=== PATIENT | male | born 1970 | race Caucasian/White ===

== ENCOUNTER 2023-03-06 09:24 | Day surgery (SDC) | payer MEDICARE ==
[2023-03-06] MEDS ORDERED: Sodium Chloride 0.9(Preservative Free) 10 ML IJ ONE (09:25)
[2023-03-06] MEDS ORDERED: LIDOCAINE HCL 1% 50 MG/5 ML VL PF IJ ONE (09:25)
[2023-03-06] MEDS ORDERED: Depo-Medrol 40 MG/ML IM ONE (09:25)
[2023-03-06] MEDS ORDERED: DIPRIVAN 200 MG/20 ML IV ONE (11:09)
--- NOTE | 2023-03-06 12:03 | XRAY ---
Indication: Lumbar JOSSELIN. Intraoperative fluoroscopy provided for 25 seconds. 2 digital spot image submitted for interpretation demonstrates needle tip projecting posterior to lumbosacral junction interspace. Small amount of contrast injected for needle tip placement. Correlate with intraoperative findings/report.
--- NOTE | 2023-03-06 12:08 | XRAY ---
25 seconds of fluoroscopy was used in surgery for a lumbar JOSSELIN.
[2023-03-06] MEDS ORDERED: Lactated Ringers 1,000 ML IV ONE (12:45)
== END 2023-03-06 11:39 | disposition home or self-care (01) ==
LOC: SDC-PAIN 09:24
PROVIDERS: ATTEND Psychiatry & Neurology Pain Medicine
DX: M54.16 Radiculopathy, lumbar region (principal); E11.9 Type 2 diabetes mellitus without complications; Z79.899 Other long term (current) drug therapy
CPT/HCPCS: 62323; 72100; 77003; 82947; J1030; J2001; J2704; Q9966

== ENCOUNTER 2023-07-17 07:44 | Day surgery (SDC) | payer MEDICARE ==
[2023-07-17] MEDS ORDERED: Depo-Medrol 40 MG/ML IM ONE (07:45)
[2023-07-17] MEDS ORDERED: LIDOCAINE HCL 2% 100 MG/5 ML IJ ONE (07:45)
[2023-07-17] MEDS ORDERED: Versed 2 MG/2 ML Injection ONE (09:23)
[2023-07-17] MEDS ORDERED: DIPRIVAN 200 MG/20 ML IV ONE (09:23)
--- NOTE | 2023-07-17 10:02 | XRAY ---
Indication: Bilateral L4-S1 MBB. Intraoperative fluoroscopy provided for 14 seconds. Single digital spot image submitted for interpretation demonstrates posterior needle tips projecting over the expected left and right L4-S1 nerve roots. Correlate with intraoperative findings/report.
[2023-07-17] MEDS ORDERED: Lactated Ringers 1,000 ML IV ONE (10:03)
--- NOTE | 2023-07-17 10:04 | XRAY ---
14 seconds of fluoroscopy was used in surgery for a bilateral L4-S1 MBB.
== END 2023-07-17 09:50 | disposition home or self-care (01) ==
LOC: SDC-PAIN 07:44
PROVIDERS: ATTEND Psychiatry & Neurology Pain Medicine
DX: M47.816 Spondylosis without myelopathy or radiculopathy, lumbar region (principal); E11.9 Type 2 diabetes mellitus without complications; Z79.899 Other long term (current) drug therapy
CPT/HCPCS: 64493; 64494; 72020; 77002; 82947; J1030; J2250; J2704

== ENCOUNTER 2024-01-01 09:17 | Day surgery (SDC) | payer MEDICARE ==
[2024-01-01] MEDS ORDERED: Depo-Medrol 40 MG/ML IM ONE (09:18)
[2024-01-01] MEDS ORDERED: BUPIVACAINE 0.5% VIAL IJ ONE (09:18)
[2024-01-01] MEDS ORDERED: DIPRIVAN 200 MG/20 ML IV ONE (10:07)
[2024-01-01] MEDS ORDERED: Lactated Ringers 1,000 ML IV ONE (11:16)
--- NOTE | 2024-01-01 11:56 | XRAY ---
Indication: Bilateral L4-S1 MBB. Intraoperative fluoroscopy provided for 12 seconds. Single digital spot image submitted for interpretation demonstrates posterior needle tips projecting over the expected left and right L4-S1 nerve roots. Correlate with intraoperative findings/report.
--- NOTE | 2024-01-01 12:07 | XRAY ---
12 seconds of fluoroscopy was used in surgery for a bilateral L4-S1 MBB.
== END 2024-01-01 10:35 | disposition home or self-care (01) ==
LOC: SDC-PAIN 09:17
PROVIDERS: ATTEND Psychiatry & Neurology Pain Medicine
DX: M47.816 Spondylosis without myelopathy or radiculopathy, lumbar region (principal); E11.9 Type 2 diabetes mellitus without complications
CPT/HCPCS: 64493; 64494; 72020; 77002; 82947; J1010; J2704

== ENCOUNTER 2024-02-05 10:06 | Day surgery (SDC) | payer MEDICARE ==
[2024-02-05] MEDS ORDERED: Sodium Chloride 0.9(Preservative Free) 10 ML IJ ONE (10:07)
[2024-02-05] MEDS ORDERED: Decadron 4 MG INJ IV ONE (10:07)
[2024-02-05] MEDS ORDERED: DIPRIVAN 200 MG/20 ML IV ONE (12:51)
[2024-02-05] MEDS ORDERED: Lactated Ringers 1,000 ML IV ONE (14:04)
--- NOTE | 2024-02-05 15:07 | XRAY ---
Indication: Right L4-S1 transforaminal JOSSELIN. Intraoperative fluoroscopy provided for 37 seconds. 5 digital spot image submitted for interpretation demonstrates posterior needle tips projecting over the expected right L4 and L5 nerve roots. Small amount of contrast injected for needle tip placement. Correlate with intraoperative findings/report.
--- NOTE | 2024-02-05 16:51 | XRAY ---
37 seconds of fluoroscopy was used in surgery for a right L4-S1 transforaminal JOSSELIN.
== END 2024-02-05 13:18 | disposition home or self-care (01) ==
LOC: SDC-PAIN 10:06
PROVIDERS: ATTEND Psychiatry & Neurology Pain Medicine
DX: M54.16 Radiculopathy, lumbar region (principal); E11.9 Type 2 diabetes mellitus without complications
CPT/HCPCS: 64483; 64484; 72100; 77003; 82947; J1100; J2704; Q9966

== ENCOUNTER 2024-05-20 15:56 | Day surgery (SDC) | payer MEDICARE ==
[2024-05-20] MEDS ORDERED: LIDOCAINE HCL 1% AMPUL 5 ML IJ ONE (15:57)
[2024-05-20] MEDS ORDERED: BUPIVACAINE 0.5% VIAL IJ ONE (15:57)
[2024-05-20] MEDS ORDERED: Depo-Medrol 40 MG/ML IM ONE (15:57)
--- NOTE | 2024-05-20 18:53 | XRAY ---
Indication: Right shoulder and subacromial bursa injection. Intraoperative fluoroscopy provided for 22 seconds. 2 digital spot images submitted for interpretation demonstrates needle tip projecting over right glenohumeral joint superiorly. Second needle tip subacromial. Small amount of contrast injected for both needle tip placement. Correlate with intraoperative findings/report.
--- NOTE | 2024-05-21 10:29 | XRAY ---
22 seconds of fluoroscopy was used in surgery for a right intra-articular shoulder and subacromial bursa injection.
== END 2024-05-20 18:00 | disposition home or self-care (01) ==
LOC: SDC-PAIN 15:56
PROVIDERS: ATTEND Psychiatry & Neurology Pain Medicine
DX: M19.011 Primary osteoarthritis, right shoulder (principal); E11.9 Type 2 diabetes mellitus without complications
CPT/HCPCS: 20610; 73030; 77002; 82947; Q9966

== ENCOUNTER 2024-06-03 16:12 | Day surgery (SDC) | payer MEDICARE ==
[2024-06-03] MEDS ORDERED: LIDOCAINE HCL 1% AMPUL 5 ML IJ ONE (16:13)
[2024-06-03] MEDS ORDERED: BUPIVACAINE 0.5% VIAL IJ ONE (16:13)
[2024-06-03] MEDS ORDERED: Depo-Medrol 40 MG/ML IM ONE (16:13)
--- NOTE | 2024-06-03 20:54 | XRAY ---
Indication: Left shoulder and subacromial bursa injection. Intraoperative fluoroscopy provided for 35 seconds. 2 digital spot images submitted for interpretation demonstrates needle tip projecting over left glenohumeral joint superiorly. Second needle tip subacromial. Small amount of contrast injected for needle tip placement. Correlate with intraoperative findings/report.
--- NOTE | 2024-06-04 09:55 | XRAY ---
35 seconds of fluoroscopy were used in surgery for a left intra-articular shoulder injection and a left subacromial bursa injection.
== END 2024-06-03 18:35 | disposition home or self-care (01) ==
LOC: SDC-PAIN 16:12
PROVIDERS: ATTEND Psychiatry & Neurology Pain Medicine
DX: M19.012 Primary osteoarthritis, left shoulder (principal); M75.52 Bursitis of left shoulder; E11.9 Type 2 diabetes mellitus without complications
CPT/HCPCS: 20610; 73030; 77002; 82947; Q9966

== ENCOUNTER 2024-09-16 15:32 | Day surgery (SDC) | payer MEDICARE ==
[2024-09-16] MEDS ORDERED: BUPIVACAINE 0.5% VIAL IJ ONE (15:33)
[2024-09-16] MEDS ORDERED: LIDOCAINE HCL 1% AMPUL 5 ML IJ ONE (15:33)
[2024-09-16] MEDS ORDERED: Depo-Medrol 40 MG/ML IM ONE (15:33)
--- NOTE | 2024-09-16 19:03 | XRAY ---
Indication: Right shoulder and subacromial bursa injection. Intraoperative fluoroscopy provided for 18 seconds. 2 digital spot image submitted for interpretation demonstrates needle tip projecting over right glenohumeral joint superiorly. Second needle tip subacromial. Small amount of contrast injected for needle tip placement. Correlate with intraoperative findings/report.
--- NOTE | 2024-09-17 08:58 | XRAY ---
18 seconds of fluoroscopy was used in surgery for a right intra-articular shoulder and subacromial bursa injection.
== END 2024-09-16 17:10 | disposition home or self-care (01) ==
LOC: SDC-PAIN 15:32
PROVIDERS: ATTEND Psychiatry & Neurology Pain Medicine
DX: M19.011 Primary osteoarthritis, right shoulder (principal); M75.51 Bursitis of right shoulder; E11.9 Type 2 diabetes mellitus without complications
CPT/HCPCS: 73030; 77002; 82947

== ENCOUNTER 2024-09-30 15:49 | Day surgery (SDC) | payer MEDICARE ==
[2024-09-30] MEDS ORDERED: LIDOCAINE HCL 1% AMPUL 5 ML IJ ONE (15:50)
[2024-09-30] MEDS ORDERED: methylPREDNISolone acetate IM ONE (15:50)
[2024-09-30] MEDS ORDERED: BUPIVACAINE 0.5% VIAL IJ ONE (15:50)
--- NOTE | 2024-09-30 18:28 | XRAY ---
Indication: Left shoulder and subacromial bursa injection. Intraoperative fluoroscopy provided for 27 seconds. 2 digital spot image submitted for interpretation demonstrates needle tip projecting over left glenohumeral joint superiorly. Second needle tip subacromial. Small amount of contrast injected for both needle tip placement. Correlate with intraoperative findings/report.
--- NOTE | 2024-09-30 18:33 | XRAY ---
27 seconds of fluoroscopy were used in surgery for a left intra-articular shoulder and left subacromial bursa injections.
== END 2024-09-30 17:42 ==
LOC: SDC-PAIN 15:49
PROVIDERS: ATTEND Psychiatry & Neurology Pain Medicine
DX: M19.012 Primary osteoarthritis, left shoulder (principal); M75.52 Bursitis of left shoulder; E11.9 Type 2 diabetes mellitus without complications
CPT/HCPCS: 20610; 73030; 77002; 82947; J1010; Q9966